=== PATIENT | male | born 1985 | race Caucasian/White ===

== ENCOUNTER 2016-05-08 15:20 | Emergency (ER) | payer MEDICAID, OTHER ==
[~2016-05-08] VITALS: Wt 71.0 kg
[2016-05-08] MEDS ORDERED: DIPHTH/TET/ACEL PERTUSS (ADULT) 0.5 ML VIAL IM* ONE (16:30)
[2016-05-08] MEDS ORDERED: LIDOCAINE 1% (MDV) 20 ML INJ SC ONE (16:30)
[2016-05-08] MEDS ORDERED: HYDROCODONE/APAP (5/325) TAB PO ONE (16:30)
[2016-05-08] MEDS ORDERED: IBUP-1542 PO (16:49)
[2016-05-08] MEDS ORDERED: CEPH-443 PO (16:49)
--- NOTE | 2016-05-08 16:52 | ERD ---
ER Documentation Chief Complaint Date/Time DATE: 05/08/16 TIME: 16:50 Chief Complaint R INDEX FO PUNCTURE HPI 30-year-old male sustained a large splinter from a palm frond into his right index finger today while playing in his yard. Denies any restricted range of motion weakness or bleeding or redness. His tetanus is not up-to-date. ROS All systems reviewed and are negative except as per history of present illness. Medications Home Meds Active Scripts Cephalexin* (Keflex*) 500 Mg Capsule, 500 MG PO QID for 5 Days, CAP Prov:MANUEL MEZA MD 05/08/16 Ibuprofen* (Motrin*) 600 Mg Tab, 600 MG PO Q6, #15 TAB Prov:MANUEL MEZA MD 05/08/16 PMhx/Soc Medical and Surgical Hx: pt denies Medical Hx, pt denies Surgical Hx Hx Alcohol Use: No Hx Substance Use: No Hx Tobacco Use: No Physical Exam Vitals Vital Signs Date Time Temp Pulse Resp B/P Pulse Ox O2 Delivery O2 Flow Rate FiO2 05/08/16 15:23 98.0 71 18 140/94 99 Physical Exam Const: [] Alert, [id number]. Head: Atraumatic Eyes: Normal Conjunctiva ENT: Normal External Ears, Nose and Mouth. Neck: Full range of motion..~ No meningismus. Resp: Clear to auscultation bilaterally Cardio: Regular rate and rhythm, no murmurs Abd: Soft, non tender, non distended. Normal bowel sounds Skin: No petechiae or rashes Back: No midline or flank tenderness Ext: No cyanosis, or edema. On the right index finger there is a small puncture wound on the proximal dorsum. There is a palpable foreign body underneath the skin extending to the volar aspect of the finger. IT is approximately 3.5 cm in length. Neur: Awake and alert Psych: Normal Mood and Affect Results 24 hrs Current Medications Medications (Trade) Dose Ordered Sig/Mark Route PRN Reason Start Time Stop Time Status Last Admin Dose Admin Lidocaine (Xylocaine 1% (Mdv) 20 ml) 20 ml ONCE ONCE SC 05/08/16 16:30 05/08/16 16:31 DC Acetaminophen/ Hydrocodone Bitart (Butler (5/325)) 1 tab ONCE ONCE PO 05/08/16 16:30 05/08/16 16:31 DC 05/08/16 16:20 Diphtheria/ Tetanus/Acell Pertussis (Adacel) 0.5 ml ONCE ONCE IM* 05/08/16 16:30 05/08/16 16:31 DC 05/08/16 16:25 Procedures/[facility] Procedure note- Patient was given a tetanus booster. Right index finger was prepped with Betadine. 3 cc of lidocaine was used to perform a digital block. Anesthesia was obtained. A small incision was made with a #11 scalpel over the entry wound of the large splinter. The foreign body is identified and retracted using forceps. It appears to be a palm thorn in its entirety. There is no palpable residual foreign body. There is no restricted range of motion or weakness after removal. Patient had his wound dressed. Patient presents with what appears to be successfully removed palm thorn from his right index finger. We discharged home with a short course of Keflex and ibuprofen instructions for wound check in 2 days, otherwise return sooner for fevers, redness, new worsening symptoms. Departure Diagnosis: Primary Impression: Splinter Condition: Stable Patient Instructions: Splinter Removal Additional Instructions: Recheck for redness, fevers, new or worsening symptoms. Recommend a wound check in 2 days MANUEL MEZA MD May 08, 2016 16:52
[2016-05-08 17:03] VITALS: RESP 18
== END 2016-05-08 17:05 | disposition home or self-care (01) ==
LOC: FTE 15:20
DX: S61.240A Puncture wound with foreign body of right index finger without damage to nail, initial encounter (principal); W45.8XXA Other foreign body or object entering through skin, initial encounter; Y92.9 Unspecified place or not applicable; Z23 Encounter for immunization
CPT/HCPCS: 10120; 90471; 90715; Z7502; Z7610